=== PATIENT | male | born 1995 | race Caucasian/White ===

== ENCOUNTER 2022-07-18 00:02 | Emergency (ER) | payer OTHER ==
[~2022-07-18] VITALS: Ht 185.4 cm; Wt 87.0 kg
[2022-07-18 00:27] VITALS: BP_DIAS 122
--- NOTE | 2022-07-18 00:30 | NUR ---
TACHYCARDIC, DENIES DRUGS OTHER THAN ALCOHOL.
[2022-07-18 01:16] VITALS: BP_SYST 170
[2022-07-18] MEDS: hyDRALAzine 10mg tablet PO ONE (01:16)
== END 2022-07-18 01:17 ==
LOC: ER 00:05
DX: I10 Essential (primary) hypertension (principal); F10.920 Alcohol use, unspecified with intoxication, uncomplicated; Y90.9 Presence of alcohol in blood, level not specified
CPT/HCPCS: 99283